=== PATIENT | male | born 2000 | race Caucasian/White ===

== ENCOUNTER 2024-12-11 07:47 | Emergency (ER) | payer OTHER, SELFPAY ==
[2024-12-11 07:49] VITALS: BP 146/81
--- NOTE | 2024-12-11 08:36 | ED.GENMED ---
History of Present Illness
General
Chief Complaint: Musculo-Skeletal Complaint
Source: patient
Exam Limitations: none
Time Seen by Provider: 12/11/24 07:54
History of Present Illness
History of Present Illness:
See MDM
Past History
Past History
ED Past Medical History: None
ED Past Surgical History: None
Social History
Tobacco: Non-smoker
Alcohol: None
Phy Exam
Physical Exam
Physical Exam:
See MDM
Course
Orders/Labs/Results
Orders:
Orders
12/11/24 07:52
CR Ankle - Right Min 3 Views * Urgent
Comment: pt does not remember injuring foot/ankle
Reason For Exam: right foot pain and ankle which started yesterday
Foot, Right 3 View [CR Foot - Right Min 3 Views] Urgent
Comment:
Reason For Exam: right foot and ankle pain since yesterday
12/11/24 08:33
Crutches-Treatment ONCE
Vital Signs
Initial and Last Documented VS:
Initial Vital Signs
Temp Pulse Resp BP Pulse Ox
98.0 F 110 16 146/81 98
12/11/24 07:49 12/11/24 07:49 12/11/24 07:49 12/11/24 07:49 12/11/24 07:49
Last Documented Vital Signs
Temp Pulse Resp BP Pulse Ox
98.0 F 110 16 146/81 98
12/11/24 07:49 12/11/24 07:49 12/11/24 07:49 12/11/24 07:49 12/11/24 07:49
MDM/Problems Addressed
Differential Diagnosis Includes:
HPI and MDM Narrative:
24-year-old male presenting with right foot pain. He noted swelling earlier today. Patient recently injured his left foot and has been favoring his right foot to get around. Patient does acknowledge that he wanted to make sure that there is no
broken bone given the amount of swelling. On exam, he does have very mild edema to his right foot. There is no skin changes. The distal extremity is otherwise neurovascularly intact. Patient does have tenderness along the right plantar fascia.
He does acknowledge that symptoms are worse when he bears weight on his right foot. X-rays were done prior to my assessment showing no fracture or malalignment of the ankle or foot. We discussed the likelihood of overuse or possibly plantar
fasciitis. Will give crutches for comfort and otherwise discussed follow-up with podiatry
Physical exam
General: Well appearing and non-toxic
HEENT: protecting airway
Neck: appears supple
CV: No evidence of cyanosis
Resp: No accessory muscle use
Abd: Non-distended
Extremities: Mild swelling to right foot. Tenderness to palpation of plantar fascia. No bony tenderness. Foot neurovascularly intact. No skin changes
Neuro: alert
Psych: Normal affect
Skin: Intact
Problems Addressed including Acute and Chronic Conditions affecting care:
1. Plantar fasciitis
Acuity: acute
Prognosis: stable
Details: Discussed rest and crutches for comfort. Discussed outpatient podiatry follow-up and return precautions
Differential Diagnosis (but not limited to): Plantar fasciitis, fracture, gout
Testing considered: Uric acid but there is no erythema noted
Drug therapy (if applicable): OTC meds, please see d/c instruction regarding Rx drugs
Amount and/or Complexity of Data Reviewed
Clinical info obtained from: Patient
External data reviewed: N/A
Labs I independently reviewed (but not limited to): N/A
Radiology: X-ray independently reviewed: Foot and ankle x-ray negative for fracture
Pulse Ox: not hypoxic
EKG independently reviewed: N/A
Volunteer Assistant: N/A
Critical Care: N/A
Risk of Complication:
Social Determinants of health: Good social support
Discussed with other providers: N/A
Escalation of Care includes Admit/Obs: After being observed in the Emergency Department, pt stable for discharge.
Occasional wrong word or 'sound a like' substitutions may have occurred due to the inherent limitations of voice recognition software. Read the chart carefully and recognize, using context, where substitutions have occurred.
*Critical Care Note
Total Time (30-74mins, 75-104mins- exclusive of procedures): Not Applicable
ED Attending Note
-
Portions of this chart may have been created with voice recognition software.� Occasional wrong word or��sound alike� substitutions may have occurred due to the inherent limitations of voice recognition software.
Discharge Plan
Departure
Patient Disposition: Home (Routine Discharge)
Date of Disposition: 12/11/24
Time of Disposition: 08:42
Patient with high blood pressure during this ER visit?: No
Discharge Problem:
Plantar fasciitis of right foot
Instructions: Plantar fasciitis
Referrals:
Germán Mejia DO [Family Provider]
Germán Zazueta DPM [Active, Podiatry]
Activity Restrictions/Additional Instructions:
Please return for any worsening symptoms.
You may return at any time if you have further concerns.
Please follow up with your doctor at the first available appointment, preferably this week.
If symptoms persist, please follow-up with the director of ancillary services.
Thank you for choosing [facility].
Interventions
Interventions:
*Risk Screen - Suicide Last Done: 12/11/24 07:49
*Neglect/Abuse Screening Last Done: 12/11/24 07:49
Discharge Date and Time
Print Language: [place]
[2024-12-11 09:19] VITALS: BP 126/76
== END 2024-12-11 09:21 | disposition home or self-care (01) ==
LOC: EMR 07:47
PROVIDERS: EMERGENCY PHYSICIAN Student in an Organized Health Care Education/Training Program; FAMILY PHYSICIAN Family Medicine
DX: M72.2 Plantar fascial fibromatosis (principal)
CPT/HCPCS: 99283; 73610; 73630